=== PATIENT | male | born 1960 | race Caucasian/White ===

== ENCOUNTER → 2016-09-13 | Outpatient (REF) | payer OTHER | LOC: M LAB REF 13:22 | PROVIDERS: ATTEND Family Medicine | DX: Z01.89 Encounter for other specified special examinations (principal) ==

== ENCOUNTER → 2017-03-10 | Outpatient (CLI) | payer OTHER ==
[2017-03-11 14:14] LABS: PSA TOTAL 1.5 ng/mL (0.0-4.0)
== END ==
LOC: M WUC 08:37
PROVIDERS: ATTEND Urology
DX: N40.0 Benign prostatic hyperplasia without lower urinary tract symptoms (principal)

== ENCOUNTER 2017-12-30 17:06 | Emergency (ER) | payer OTHER | END 2017-12-30 18:58 | disposition home or self-care (01) | LOC: M ED 17:06 | DX: M16.11 Unilateral primary osteoarthritis, right hip (principal); I10 Essential (primary) hypertension; K21.9 Gastro-esophageal reflux disease without esophagitis; E78.5 Hyperlipidemia, unspecified; Z79.899 Other long term (current) drug therapy | CPT/HCPCS: 73502 ==

== ENCOUNTER → 2018-03-17 | Outpatient (CLI) | payer OTHER ==
[2018-03-17 12:27] LABS: PROSTATIC SPECIFIC AG MONITOR 1.89 NG/ML (< 4.0)
== END ==
LOC: M WUC 09:10
DX: N40.0 Benign prostatic hyperplasia without lower urinary tract symptoms (principal)
CPT/HCPCS: 84153

== ENCOUNTER 2018-08-31 08:20 | Day surgery (SDC) | payer OTHER ==
[~2018-08-31] VITALS: Ht 198.1 cm; Wt 117.9 kg
[~2018-08-31 08:20] MED LIST: ATOR1TAB19 PO; ENAL10TA2 PO; ENAL20TA PO; HYDR25TAB PO; LANS30TA5 PO; NS 1,000 ML IV ONE
[2018-08-31] MEDS ORDERED: PROPOFOL 200 MG/20 ML VIAL As Ordered ONE (09:22)
[2018-08-31] MEDS ORDERED: LIDOCAINE 2% INJ 100 MG/5 ML SDV (FOR ANES.) As Ordered ONE (09:36)
--- NOTE | 2018-08-31 10:01 | ROOR ---
Patient Name: Romero Mccollum Procedure Date: 08/31/2018 9:28 AM Date of : 1960 Age: 57 Room: [facility] Gender: Male Note Status: Finalized Procedure: Colonoscopy Indications: Screening patient at increased risk: Family history of 1st-degree relative with colorectal cancer at age 60 years (or older) Providers: Bhargav Nicole Jr, MD Referring MD: Bg Fletcher MD Requesting Provider: Medicines: Propofol per Anesthesia Complications: No immediate complications. Procedure: Pre-Anesthesia Assessment: - Prior to the procedure, a History and Physical was performed, and patient medications and allergies were reviewed. The patient is competent. The risks and benefits of the procedure and the sedation options and risks were discussed with the patient. All questions were answered and informed consent was obtained. Patient identification and proposed procedure were verified by the physician and the nurse in the pre-procedure area and in the procedure room. Mental Status Examination: alert and oriented. Airway Examination: normal oropharyngeal airway and neck mobility. Respiratory Examination: clear to auscultation. CV Examination: normal. ASA Grade Assessment: II - A patient with mild systemic disease. After reviewing the risks and benefits, the patient was deemed in satisfactory condition to undergo the procedure. The anesthesia plan was to use moderate sedation / analgesia (conscious sedation). Immediately prior to administration of medications, the patient was re-assessed for adequacy to receive sedatives. The heart rate, respiratory rate, oxygen saturations, blood pressure, adequacy of pulmonary ventilation, and response to care were monitored throughout the procedure. The physical status of the patient was re-assessed after the procedure. The Colonoscope was introduced through the anus and advanced to the cecum, identified by appendiceal orifice and ileocecal valve. The colonoscopy was performed without difficulty. The patient tolerated the procedure well. The quality of the bowel preparation was adequate. Findings: Non-bleeding internal hemorrhoids were found during endoscopy. The hemorrhoids were moderate. A few small-mouthed diverticula were found in the sigmoid colon. A small polyp was found in the cecum. The polyp was sessile. The polyp was removed with a hot snare. Resection and retrieval were complete. The rectum, recto-sigmoid colon, descending colon, transverse colon, ascending colon, appendiceal orifice and ileocecal valve appeared normal. Impression: - Non-bleeding internal hemorrhoids. - Diverticulosis in the sigmoid colon. - One small polyp in the cecum, removed with a hot snare. Resected and retrieved. - The rectum, recto-sigmoid colon, descending colon, transverse colon, ascending colon, appendiceal orifice and ileocecal valve are normal. Recommendation: - Discharge patient to home (ambulatory). - Repeat colonoscopy in 5 years for surveillance based on pathology results. Bhargav Nicole MD Bhargav Nicole Jr, MD 08/31/2018 10:01:00 AM This report has been signed electronically. Number of Addenda: 0 Note Initiated On: 08/31/2018 9:28 AM Estimated Blood Loss: Estimated blood loss: none.
[2018-08-31 10:20] VITALS: BP 139/99
== END 2018-08-31 10:24 | disposition home or self-care (01) ==
LOC: M OPP 08:20
PROVIDERS: ATTEND Surgery
DX: K64.8 Other hemorrhoids (principal); K57.30 Diverticulosis of large intestine without perforation or abscess without bleeding; D12.0 Benign neoplasm of cecum; Z12.11 Encounter for screening for malignant neoplasm of colon; Z80.0 Family history of malignant neoplasm of digestive organs

== ENCOUNTER → 2018-10-27 | Outpatient (CLI) | payer OTHER ==
[~2018-10-27] MED LIST changes: -NS 1,000 ML IV ONE
== END ==
LOC: M WUC 11:02
PROVIDERS: ATTEND Urology
DX: N40.0 Benign prostatic hyperplasia without lower urinary tract symptoms (principal)

== ENCOUNTER → 2019-03-15 | Outpatient (CLI) | payer OTHER ==
--- NOTE | 2019-03-21 21:53 | SLEEPHOME ---
DATE OF PROCEDURE: 03/15/2019 Ordered by: JANELLE Mills Diagnostic home sleep testing was performed due to concern for the obstructive sleep apnea syndrome in this patient with excessive somnolence, nonrestorative sleep and comorbidities of hypertension and acid reflux disease. For testing a nocturnal T3 respiratory monitoring device was used. Continuous record was made of pulse, oxygen saturation, airflow, chest, abdominal strain and body position. 5 hours and 59 minutes of data were reviewed. There were 5 hours and 15 minutes marked as time in bed. During the interval marked time in bed there 91 respiratory events identified of 10 seconds in duration or greater for a respiratory event index of 17.3. The events were primarily obstructive. Baseline pulse rate 68 beats per minute. Pulse rate ranged 47 to 94. Baseline saturation 92%. Saturations fell as low as 85%. Testing was performed in both the supine and nonsupine positions. IMPRESSION Abnormal home sleep testing with repetitive respiratory events and oxygen desaturations to 85% with a respiratory event index of 17.3 is consistent with the obstructive sleep apnea syndrome. RECOMMENDATIONS The patient should be encouraged to undergo formal sleep evaluation.
== END ==
LOC: M SLEEP HO 11:44
PROVIDERS: ATTEND Nurse Practitioner Family
DX: R40.0 Somnolence (principal); G47.9 Sleep disorder, unspecified

== ENCOUNTER → 2019-04-10 | Outpatient (CLI) | payer OTHER | LOC: M WUC 08:55 | PROVIDERS: ATTEND Urology | DX: R31.9 Hematuria, unspecified (principal) ==

== ENCOUNTER → 2019-04-29 | Outpatient (CLI) | payer OTHER ==
--- NOTE | 2019-05-01 20:30 | SLEEPCENT ---
DATE OF PROCEDURE: 04/29/2019 ORDERED BY: CATE Mills Nocturnal polysomnography was performed for the titration of pressure therapy in this patient with a clinical diagnosis of obstructive sleep apnea syndrome confirmed by home testing revealing a respiratory event index of 17.3. For testing the patient was fit with a [employer]Med Quattro full face mask of medium size, 4 cm of water pressure were applied to the circuit and the lights were extinguished. 7 hours and 23.5 minutes of data were reviewed. There were 317 minutes of sleep identified. Sleep latency was prolonged at 22.5 minutes. Rapid eye movement (REM) latency was normal at 88.5 minutes. Sleep architecture was fair with four REM cycles. Overall sleep efficiency 72.4%. The patient's electrocardiogram showed a sinus rhythm with an average heart rate of 52 beats per minute. EEG showed normal waveforms for awake and sleep stages. Respiratory events were fully palliated with continuous positive airway pressure (CPAP) at a pressure of +10. There was some activity in the limb leads, particularly early in the study. Limb movement arousal index of 6.4. IMPRESSION: Obstructive sleep apnea syndrome (G47.33). RECOMMENDATIONS: Nightly use of pressure therapy 10 cm of water.
== END ==
LOC: M SLEEP 20:00
PROVIDERS: ATTEND Nurse Practitioner Family
DX: G47.33 Obstructive sleep apnea (adult) (pediatric) (principal)

== ENCOUNTER → 2020-04-18 | Outpatient (CLI) | payer OTHER ==
[~2020-04-18] MED LIST changes: +ENAL-36 PO; -ENAL10TA2 PO; -ENAL20TA PO; +ENAL20TA11 PO
[2020-04-21 20:08] LABS: PSA TOTAL 2.4 ng/mL (0.0-4.0)
== END ==
LOC: M WUC 12:36
PROVIDERS: ATTEND Urology
DX: Z12.5 Encounter for screening for malignant neoplasm of prostate (principal)

== ENCOUNTER → 2021-04-20 | Outpatient (CLI) | payer OTHER ==
[~2021-04-20] MED LIST changes: +HYDR-3490 PO; -HYDR25TAB PO
== END ==
LOC: M WUC 10:12
PROVIDERS: ATTEND Urology
DX: R31.9 Hematuria, unspecified (principal)

== ENCOUNTER → 2021-08-26 | Outpatient (REF) | payer OTHER ==
[2021-08-26 14:56] LABS: CREATININE, URINE 68.7 MG/DL; MALB URINE SIEMENS < 5.0 MG/L; MAU/CREAT RATIO 7.2 MCG/MG (0.0-30.0)
== END ==
LOC: M LAB REF 12:11
PROVIDERS: ATTEND Family Medicine
DX: E11.9 Type 2 diabetes mellitus without complications (principal)

== ENCOUNTER → 2022-04-13 | Outpatient (CLI) | payer OTHER | LOC: M WUC 08:11 | PROVIDERS: ATTEND Urology | DX: R31.9 Hematuria, unspecified (principal) ==

== ENCOUNTER → 2023-05-13 | Outpatient (REF) | payer OTHER ==
[~2023-05-13] MED LIST changes: -ENAL-36 PO; +ENAL1TAB50 PO; +ENAL1TAB52 PO; -ENAL20TA11 PO
== END ==
LOC: M LABWUC 11:08
PROVIDERS: ATTEND Nurse Practitioner Family
DX: Z12.5 Encounter for screening for malignant neoplasm of prostate (principal)

== ENCOUNTER 2023-12-15 06:50 | Day surgery (SDC) | payer OTHER ==
[~2023-12-15] VITALS: Ht 198.1 cm; Wt 116.7 kg
[~2023-12-15 06:50] MED LIST changes: +ASPI81TA26 PO; +JANU100T PO; +METF500T13 PO
[2023-12-15] MEDS: NS 1,000 ML IV ONE (07:12)
[2023-12-15] MEDS ORDERED: propofoL 200 MG/20 ML VIAL As Ordered ONE (07:32)
[2023-12-15 08:11] VITALS: TEMP 97
[2023-12-15 08:22] VITALS: BP 133/73; O2SAT 95
== END 2023-12-15 08:29 | disposition home or self-care (01) ==
LOC: M OPP 06:50
PROVIDERS: ATTEND Surgery
DX: Z12.11 Encounter for screening for malignant neoplasm of colon (principal); D12.2 Benign neoplasm of ascending colon; K21.9 Gastro-esophageal reflux disease without esophagitis; Z86.010 Personal history of colon polyps; Z87.19 Personal history of other diseases of the digestive system; I10 Essential (primary) hypertension; E78.00 Pure hypercholesterolemia, unspecified; E11.9 Type 2 diabetes mellitus without complications; Z80.0 Family history of malignant neoplasm of digestive organs; Z80.42 Family history of malignant neoplasm of prostate; Z79.899 Other long term (current) drug therapy; Z79.84 Long term (current) use of oral hypoglycemic drugs

== ENCOUNTER → 2024-09-11 | Outpatient (CLI) | payer OTHER | LOC: M WUC 11:07 | PROVIDERS: ATTEND Urology | DX: C61 Malignant neoplasm of prostate (principal) ==

== ENCOUNTER → 2025-03-13 | Outpatient (REF) | payer OTHER | LOC: M LABWUC 12:15 | PROVIDERS: ATTEND Urology | DX: C61 Malignant neoplasm of prostate (principal) ==